=== PATIENT | female | born 1955 | race Caucasian/White ===

== ENCOUNTER → 2017-03-07 | Outpatient (CLI) | payer BC ==
--- NOTE | 2017-03-07 13:55 | REP ---
Clinical: COPD. Technique: PA and lateral. Comparison: 06/02/2014. Findings: Mediastinum and cardiac silhouette are within normal limits. Lung floyd demonstrate chronic interstitial changes along with hyperinflation and stable changes related to COPD. No acute consolidation, effusion, or pneumothorax. Skeletal structures demonstrate age-related osteopenia and degenerative change. Impression: Chronic stable changes consistent with history of COPD. No obvious acute cardiopulmonary process appreciated. Signed by Tarun Bruner MD 03/07/2017 01:46 P
== END ==
LOC: M RAD 13:37
PROVIDERS: ATTEND Internal Medicine Pulmonary Disease
DX: J44.9 Chronic obstructive pulmonary disease, unspecified (principal)

== ENCOUNTER → 2017-11-27 | Outpatient (CLI) | payer BC | LOC: M RAD 07:03 | DX: Z12.2 Encounter for screening for malignant neoplasm of respiratory organs (principal); F17.218 Nicotine dependence, cigarettes, with other nicotine-induced disorders; J44.9 Chronic obstructive pulmonary disease, unspecified; R91.8 Other nonspecific abnormal finding of lung field | CPT/HCPCS: G0297 ==

== ENCOUNTER → 2018-03-27 | Outpatient (CLI) | payer BC | LOC: M RAD 16:57 | DX: R91.8 Other nonspecific abnormal finding of lung field (principal) | CPT/HCPCS: 71250 ==

== ENCOUNTER → 2020-10-05 | Outpatient (CLI) | payer BC ==
--- NOTE | 2020-10-05 09:38 | REP ---
INDICATION: NICOTINE DEPENDENCE COMPARISON: 11/27/2017 TECHNIQUE: Axial noncontrast images from the thoracic inlet to the upper abdomen using low-dose lung screening technique (LDCT). FINDINGS: Early emphysematous changes are appreciated along with mild bronchiectasis and minimal primarily biapical scarring. Small pleural based posterior right lower lobe nodule and left lower lobe density remains stable compared through 2018. No acute consolidation, new nodule or mass. No effusion. No pneumothorax. IMPRESSION: Lung-RADS category 2. Stable chronic changes. Management recommendations include annual low-dose CT surveillance. <Electronically signed by Tarun Bruner > 10/05/20 [id number]
== END ==
LOC: M RAD 06:54
PROVIDERS: ATTEND Internal Medicine Pulmonary Disease
DX: Z12.2 Encounter for screening for malignant neoplasm of respiratory organs (principal); F17.200 Nicotine dependence, unspecified, uncomplicated; J47.9 Bronchiectasis, uncomplicated; R91.1 Solitary pulmonary nodule

== ENCOUNTER → 2021-11-29 | Outpatient (CLI) | payer BC | LOC: M RAD 06:12 | PROVIDERS: ATTEND Internal Medicine Pulmonary Disease | DX: R91.1 Solitary pulmonary nodule (principal); F17.218 Nicotine dependence, cigarettes, with other nicotine-induced disorders ==

== ENCOUNTER → 2022-12-22 | Outpatient (CLI) | payer BC, MEDICARE, OTHER | LOC: M RAD 13:06 | PROVIDERS: ATTEND Internal Medicine Pulmonary Disease | DX: F17.200 Nicotine dependence, unspecified, uncomplicated (principal) ==

== ENCOUNTER 2023-06-09 10:10 | Emergency (ER) | payer MEDICARE, OTHER ==
[~2023-06-09] VITALS: Ht 167.6 cm; Wt 38.9 kg
[2023-06-09 10:14] VITALS: BP 150/72; TEMP 98; O2SAT 94
[2023-06-09] MEDS ORDERED: DOXY-443 PO (12:57)
== END 2023-06-09 13:11 | disposition home or self-care (01) ==
LOC: M ED 10:10
DX: J11.00 Influenza due to unidentified influenza virus with unspecified type of pneumonia (principal); J45.909 Unspecified asthma, uncomplicated; F17.210 Nicotine dependence, cigarettes, uncomplicated; F10.10 Alcohol abuse, uncomplicated; I25.2 Old myocardial infarction; Z79.2 Long term (current) use of antibiotics

== ENCOUNTER 2023-06-15 05:00 | Emergency (ER) | payer OTHER ==
[~2023-06-15] VITALS: Ht 157.5 cm; Wt 40.5 kg
[~2023-06-15 05:00] MED LIST: DOXY-443 PO
[2023-06-15] MEDS ORDERED: ACET500T15 PO (05:15)
[2023-06-15] MEDS ORDERED: ATEN25TA (05:17)
[2023-06-15 06:55] LABS: INR 0.92; PROTHROMBIN TIME 12.1 SECONDS (12.5-14.5)
[2023-06-15 06:56] LABS: PARTIAL THROMBOPLASTIN TIME 26.9 SECONDS (24.8-34.2)
[2023-06-15 07:29] LABS: BASO % 0.2 % (0.0-1.0); EOS % 0.1 % (0.0-3.0); HEMATOCRIT 30.6 % (36.0-47.0); HEMOGLOBIN 11.8 g/dl (12.0-15.5); LYMPH # 1.9 10^3/uL (1.5-5.0); LYMPH % 9.5 % (24.0-44.0); MEAN CORPUSCULAR HEMOGLOBIN 34.7 pg (27.0-33.0); MONO # 0.9 10^3/uL (0.0-0.8); MONO % 4.6 % (2.0-8.0); NEUTROPHILS # 16.5 10^3/uL (1.5-8.5); NEUTROPHILS % 84.5 % (36.0-66.0); PLATELET COUNT, AUTOMATED 462 10^3/uL (150-450); WHITE BLOOD COUNT 19.5 10^3/uL (4.0-10.0)
[2023-06-15 07:36] LABS: MEAN CORPUSCULAR HGB CONC 38.6 g/dl (32.0-36.5)
[2023-06-15 07:54] LABS: FREE T4 1.34 NG/DL (0.89-1.76); THYROID STIMULATING HORMONE 1.146 uIU/ML (0.55-4.78)
[2023-06-15 08:09] LABS: ALBUMIN 2.9 G/DL (3.2-5.2); ALKALINE PHOSPHATASE 52 U/L (46-116); ALT/SGPT 26 U/L (7.0-40); AST/SGOT 16 U/L (<34); BILIRUBIN,DIRECT 0.2 MG/DL (<0.4); BILIRUBIN,TOTAL 0.5 MG/DL (0.3-1.2); BLOOD UREA NITROGEN 15 MG/DL (9-23); CALCIUM LEVEL 8.6 MG/DL (8.3-10.6); CARBON DIOXIDE LEVEL 26 MMOL/L (20-31); CHLORIDE LEVEL 102 MMOL/L (98-107); CK-MB VALUE MASS 1.6 NG/ML (<3.6); CPK CREATINE PHOSPHOKINASE 70 U/L (34-145); CREATININE FOR GFR 0.38 MG/DL (0.55-1.30); GLOMERULAR FILTRATION RATE > 60.0 (>45); GLUCOSE, FASTING 88 MG/DL (74-106); MB/CK RELATIVE INDEX 2.28 (< OR =4); POTASSIUM SERUM 3.4 MMOL/L (3.5-5.1); SODIUM LEVEL 133 MMOL/L (136-145); TOTAL PROTEIN 6.2 G/DL (5.7-8.2)
[2023-06-15] MEDS: POTASSIUM CHLORIDE 10MEQ SR TABLET PO ONE (08:35)
[2023-06-15] MEDS ORDERED: ISOVUE-370 76% 100ML VIAL As Ordered ONE (08:39)
[2023-06-15] MEDS ORDERED: DOXY100C82 PO (10:14)
[2023-06-15] MEDS ORDERED: CEFD300C PO (10:14)
[2023-06-15] MEDS ORDERED: PRED10TA2 PO (10:15)
[2023-06-15 10:20] VITALS: O2SAT 91
[2023-06-15 10:32] VITALS: BP 163/79; TEMP 97.9; O2SAT 97
== END 2023-06-15 10:30 | disposition home or self-care (01) ==
LOC: M ED 05:00
DX: J18.9 Pneumonia, unspecified organism (principal); J44.9 Chronic obstructive pulmonary disease, unspecified; R91.8 Other nonspecific abnormal finding of lung field; I25.2 Old myocardial infarction; E78.5 Hyperlipidemia, unspecified; F17.200 Nicotine dependence, unspecified, uncomplicated; J45.909 Unspecified asthma, uncomplicated
CPT/HCPCS: 36415; 71046; 71275; 80048; 80076; 82550; 82553; 83605; 83880; 84439; 84443; 84484; 85025; 85610; 85730; 87040; 87486; 87581; 87633; 87798; 93005; 93041; 94760; 99285; Q9967

== ENCOUNTER 2023-08-01 06:53 | Inpatient (IN) | payer OTHER ==
[~2023-08-01] VITALS: Ht 157.5 cm; Wt 37.2 kg
[~2023-08-01 06:53] MED LIST changes: +ACET500T15 PO; +ATEN25TA PO; +CEFD300C PO; +DOXY100C82 PO; +PRED10TA2 PO
[2023-08-01] MEDS ORDERED: TREL1AER INH (07:21)
[2023-08-01] MEDS ORDERED: PROA1AER2 INH (07:21)
[2023-08-01 11:06] LABS: HEMATOCRIT 36.2 % (36.0-47.0); HEMOGLOBIN 13.5 g/dl (12.0-15.5); MEAN CORPUSCULAR HEMOGLOBIN 36.9 pg (27.0-33.0); MEAN CORPUSCULAR VOLUME 98.9 fl (80.0-96.0); PLATELET COUNT, AUTOMATED 179 10^3/uL (150-450); RED BLOOD COUNT 3.66 10^6/uL (4.00-5.40); WHITE BLOOD COUNT 18.3 10^3/uL (4.0-10.0)
[2023-08-01] MEDS: methylPREDNISolone 125MG 2ML VIAL IV ONE (11:18)
[2023-08-01 11:20] LABS: INR 1.08; PROTHROMBIN TIME 13.7 SECONDS (12.5-14.5)
[2023-08-01 11:22] VITALS: O2SAT 95
[2023-08-01] MEDS: IPRATROPIUM 0.5MG/ALBUTEROL 2.5MG INH SOL UD 3ML (DUONEB) NEB ONE (11:22)
[2023-08-01 11:31] LABS: MEAN CORPUSCULAR HGB CONC 37.3 g/dl (32.0-36.5)
[2023-08-01 11:37] LABS: PROCALCITONIN 38.73 ng/ml
[2023-08-01 11:38] LABS: ALBUMIN 3.4 G/DL (3.2-5.2); ALKALINE PHOSPHATASE 51 U/L (46-116); ALT/SGPT 18 U/L (7.0-40); AST/SGOT 38 U/L (<34); BILIRUBIN,DIRECT 0.3 MG/DL (<0.4); BILIRUBIN,TOTAL 1.2 MG/DL (0.3-1.2); BLOOD UREA NITROGEN 12 MG/DL (9-23); CALCIUM LEVEL 8.8 MG/DL (8.3-10.6); CARBON DIOXIDE LEVEL 24 MMOL/L (20-31); CHLORIDE LEVEL 94 MMOL/L (98-107); CREATININE FOR GFR 0.37 MG/DL (0.55-1.30); GLOMERULAR FILTRATION RATE > 60.0 (>45); GLUCOSE, FASTING 93 MG/DL (74-106); SODIUM LEVEL 127 MMOL/L (136-145); TOTAL PROTEIN 6.3 G/DL (5.7-8.2)
[2023-08-01 11:57] LABS: EOSINOPHILS 1 % (0-3); LYMPHOCYTES 8 % (16-44); MONOCYTES 3 % (0-5); NEUTROPHILS 83 % (28-66); PLATELET ESTIMATE NORMAL (NORMAL)
[2023-08-01 11:58] LABS: ANISOCYTOSIS 1+
[2023-08-01] MEDS: IPRATROPIUM 0.5MG/ALBUTEROL 2.5MG INH SOL UD 3ML (DUONEB) NEB SCH (12:00)
[2023-08-01] MEDS: cefTRIAXone SOD 2 GM in D5W MINI-BAG PLUS 50 ML IV ONE (12:00)
[2023-08-01] MEDS ORDERED: ALBU8.5H INH (12:34)
[2023-08-01] MEDS ORDERED: HOME MED LIST COMPLETE! XX SCH (12:35)
[2023-08-01] MEDS: NS 1,120 ML in IV 1 EA IV ONE (12:43)
[2023-08-01 12:51] LABS: CK-MB VALUE MASS 1.1 NG/ML (<3.6); CPK CREATINE PHOSPHOKINASE 71 U/L (34-145); MB/CK RELATIVE INDEX 1.54 (< OR =4)
[2023-08-01] MEDS: ACETAMINOPHEN TAB 650MG DOSE (2X325MG) PO ONE (13:06)
[2023-08-01] MEDS ORDERED: KETOROLAC 30 MG/ML 1ML VIAL IV PRN (13:15)
[2023-08-01] MEDS: AZITHROMYCIN 250MG TABLET PO SCH (14:29)
[2023-08-01] MEDS: BUDESONIDE 0.5 MG/2 ML INHALATION SUSPENSION NEB SCH (15:51)
[2023-08-01] MEDS: FORMOTEROL FUMARATE 20 MCG/2 ML INHALATION SOLUTION (PERFOROMIST) INH SCH (15:51)
[2023-08-01 16:30] VITALS: BP 92/60; O2SAT 98
[2023-08-01] MEDS: methylPREDNISolone 40MG 1ML VIAL IV SCH (18:23)
[2023-08-01] MEDS: NS 1,000 ML IV ONE (18:23)
[2023-08-01 20:32] VITALS: BP 110/66; TEMP 97.3; O2SAT 98
[2023-08-01] MEDS: ENOXAPARIN 30MG/0.3ML SYRINGE (J1650 PER 10MG) SC SCH (20:59)
[2023-08-02 05:28] VITALS: BP 114/56; TEMP 98.6; O2SAT 95
[2023-08-02 07:02] LABS: BLOOD UREA NITROGEN 14 MG/DL (9-23); CALCIUM LEVEL 8.4 MG/DL (8.3-10.6); CARBON DIOXIDE LEVEL 21 MMOL/L (20-31); CHLORIDE LEVEL 107 MMOL/L (98-107); CREATININE FOR GFR 0.36 MG/DL (0.55-1.30); GLOMERULAR FILTRATION RATE > 60.0 (>45); GLUCOSE, FASTING 154 MG/DL (74-106); POTASSIUM SERUM 3.4 MMOL/L (3.5-5.1); SODIUM LEVEL 134 MMOL/L (136-145)
[2023-08-02 07:22] LABS: BASO % 0.1 % (0.0-1.0); HEMATOCRIT 28.7 % (36.0-47.0); LYMPH # 0.5 10^3/uL (1.5-5.0); MEAN CORPUSCULAR HEMOGLOBIN 36.2 pg (27.0-33.0); MEAN CORPUSCULAR VOLUME 95.3 fl (80.0-96.0); MONO # 0.3 10^3/uL (0.0-0.8); MONO % 1.8 % (2.0-8.0); NEUTROPHILS # 15.8 10^3/uL (1.5-8.5); NEUTROPHILS % 92.4 % (36.0-66.0); PLATELET COUNT, AUTOMATED 169 10^3/uL (150-450); RED BLOOD COUNT 3.01 10^6/uL (4.00-5.40); WHITE BLOOD COUNT 17.1 10^3/uL (4.0-10.0)
[2023-08-02 07:24] LABS: HEMOGLOBIN 10.9 g/dl (12.0-15.5)
[2023-08-02] MEDS: POTASSIUM CHLORIDE 10MEQ SR TABLET PO SCH (08:12)
[2023-08-02] MEDS: ACETAMINOPHEN TAB 650MG DOSE (2X325MG) PO PRN (08:14)
[2023-08-02] MEDS ORDERED: cefTRIAXone SOD 1 GM in D5W MINI-BAG PLUS 50 ML IV SCH (12:00)
[2023-08-02] MEDS: cefTRIAXone SOD 2 GM in D5W MINI-BAG PLUS 50 ML IV SCH (12:17)
[2023-08-02 14:00] VITALS: BP 115/58; TEMP 98.2; O2SAT 96
[2023-08-02 19:30] VITALS: BP 110/58; TEMP 98.4; O2SAT 96
[2023-08-03 05:00] VITALS: BP 120/60; TEMP 98.6; O2SAT 97
[2023-08-03 06:21] LABS: BLOOD UREA NITROGEN 21 MG/DL (9-23); CALCIUM LEVEL 8.7 MG/DL (8.3-10.6); CARBON DIOXIDE LEVEL 21 MMOL/L (20-31); CHLORIDE LEVEL 109 MMOL/L (98-107); CREATININE FOR GFR 0.31 MG/DL (0.55-1.30); GLOMERULAR FILTRATION RATE > 60.0 (>45); GLUCOSE, FASTING 175 MG/DL (74-106); POTASSIUM SERUM 3.7 MMOL/L (3.5-5.1); SODIUM LEVEL 137 MMOL/L (136-145)
[2023-08-03 08:04] LABS: BASO % 0.1 % (0.0-1.0); HEMATOCRIT 26.3 % (36.0-47.0); HEMOGLOBIN 9.9 g/dl (12.0-15.5); LYMPH # 0.6 10^3/uL (1.5-5.0); MEAN CORPUSCULAR HEMOGLOBIN 36.9 pg (27.0-33.0); MEAN CORPUSCULAR VOLUME 98.1 fl (80.0-96.0); MONO # 0.3 10^3/uL (0.0-0.8); NEUTROPHILS % 91.9 % (36.0-66.0); PLATELET COUNT, AUTOMATED 182 10^3/uL (150-450); RED BLOOD COUNT 2.68 10^6/uL (4.00-5.40); WHITE BLOOD COUNT 14.1 10^3/uL (4.0-10.0)
[2023-08-03 08:17] LABS: MEAN CORPUSCULAR HGB CONC 37.6 g/dl (32.0-36.5)
[2023-08-03] MEDS ORDERED: PROBCAP14 PO (10:21)
[2023-08-03] MEDS ORDERED: AMOX875T2 PO (10:21)
[2023-08-03] MEDS ORDERED: ALBU8.5H INH (10:21)
[2023-08-03 14:00] VITALS: BP 122/63; TEMP 98.6; O2SAT 98
[2023-08-03 21:00] VITALS: BP 149/69; TEMP 97.9; O2SAT 96
[2023-08-04 06:20] VITALS: BP 139/64; TEMP 98.4; O2SAT 97
[2023-08-04 06:39] LABS: BLOOD UREA NITROGEN 21 MG/DL (9-23); CALCIUM LEVEL 9.1 MG/DL (8.3-10.6); CARBON DIOXIDE LEVEL 23 MMOL/L (20-31); CHLORIDE LEVEL 108 MMOL/L (98-107); CREATININE FOR GFR 0.35 MG/DL (0.55-1.30); GLOMERULAR FILTRATION RATE > 60.0 (>45); GLUCOSE, FASTING 130 MG/DL (74-106); POTASSIUM SERUM 3.8 MMOL/L (3.5-5.1); SODIUM LEVEL 138 MMOL/L (136-145)
[2023-08-04 07:16] LABS: BASO % 0.1 % (0.0-1.0); HEMATOCRIT 26.4 % (36.0-47.0); HEMOGLOBIN 9.9 g/dl (12.0-15.5); LYMPH # 0.7 10^3/uL (1.5-5.0); LYMPH % 7.6 % (24.0-44.0); MONO # 0.3 10^3/uL (0.0-0.8); MONO % 2.8 % (2.0-8.0); NEUTROPHILS # 8.2 10^3/uL (1.5-8.5); NEUTROPHILS % 88.5 % (36.0-66.0); PLATELET COUNT, AUTOMATED 207 10^3/uL (150-450); RED BLOOD COUNT 2.75 10^6/uL (4.00-5.40); WHITE BLOOD COUNT 9.2 10^3/uL (4.0-10.0)
[2023-08-04 07:19] LABS: MEAN CORPUSCULAR HGB CONC 37.5 g/dl (32.0-36.5)
[2023-08-04] MEDS ORDERED: PRED10TA2 PO (09:10)
[2023-08-04] MEDS ORDERED: PANT40TA29 PO (09:12)
== END 2023-08-04 11:30 | disposition home or self-care (01) | DRG 871 ==
LOC: EDBD 06:53 → M ED 09:49 → M ED INP 14:00 → ENRESERV 16:09 → M MSPAV 16:33
PROVIDERS: ADMIT Internal Medicine Nephrology; ATTEND Internal Medicine Nephrology
DX: A41.9 Sepsis, unspecified organism (principal); J18.9 Pneumonia, unspecified organism; J44.0 Chronic obstructive pulmonary disease with (acute) lower respiratory infection; J44.1 Chronic obstructive pulmonary disease with (acute) exacerbation; E43 Unspecified severe protein-calorie malnutrition; Z68.1 Body mass index [BMI] 19.9 or less, adult; E87.1 Hypo-osmolality and hyponatremia; R91.1 Solitary pulmonary nodule; F17.200 Nicotine dependence, unspecified, uncomplicated; Z79.899 Other long term (current) drug therapy

== ENCOUNTER → 2023-08-17 | Outpatient (REF) | payer OTHER, MEDICARE ==
[~2023-08-17] MED LIST changes: +ALBU8.5H INH; +AMOX875T2 PO; +PANT40TA29 PO; +PROA1AER2 INH; +PROBCAP14 PO; +TREL1AER INH
[2023-08-17 18:35] LABS: HEMATOCRIT 35.3 % (36.0-47.0); MEAN CORPUSCULAR HEMOGLOBIN 38.8 pg (27.0-33.0); MEAN CORPUSCULAR VOLUME 105.4 fl (80.0-96.0); PLATELET COUNT, AUTOMATED 274 10^3/uL (150-450); RED BLOOD COUNT 3.35 10^6/uL (4.00-5.40); WHITE BLOOD COUNT 8.8 10^3/uL (4.0-10.0)
[2023-08-17 18:38] LABS: MEAN CORPUSCULAR HGB CONC 36.8 g/dl (32.0-36.5)
[2023-08-17 19:08] LABS: BLOOD UREA NITROGEN 17 MG/DL (9-23); CALCIUM LEVEL 9.7 MG/DL (8.3-10.6); CARBON DIOXIDE LEVEL 28 MMOL/L (20-31); CHLORIDE LEVEL 96 MMOL/L (98-107); CREATININE FOR GFR 0.55 MG/DL (0.55-1.30); GLOMERULAR FILTRATION RATE > 60.0 (>45); GLUCOSE, FASTING 65 MG/DL (74-106); POTASSIUM SERUM 4.6 MMOL/L (3.5-5.1); SODIUM LEVEL 131 MMOL/L (136-145); THYROID STIMULATING HORMONE 1.081 uIU/ML (0.55-4.78)
[2023-08-17 19:19] LABS: ATYPICAL LYMPH 6 % (0-5); BASOPHILS 3 % (0-1); EOSINOPHILS 2 % (0-3); LYMPHOCYTES 31 % (16-44); MONOCYTES 5 % (0-5); NEUTROPHILS 53 % (28-66)
[2023-08-17 19:20] LABS: PLATELET ESTIMATE NORMAL (NORMAL)
== END ==
LOC: M LAB REF 16:39
PROVIDERS: ATTEND Nurse Practitioner Family
DX: E87.1 Hypo-osmolality and hyponatremia (principal); J18.9 Pneumonia, unspecified organism

== ENCOUNTER → 2023-08-30 | Outpatient (CLI) | payer MEDICARE, OTHER ==
[~2023-08-30] MED LIST changes: +DOXY-323 PO; -DOXY-443 PO
== END ==
LOC: M PLAIMG 10:33
PROVIDERS: ATTEND Internal Medicine Pulmonary Disease
DX: R91.8 Other nonspecific abnormal finding of lung field (principal)

== ENCOUNTER → 2023-12-19 | Outpatient (REF) | payer OTHER ==
[2023-12-19 13:45] LABS: HEMATOCRIT 37.2 % (36.0-47.0); HEMOGLOBIN 13.7 g/dl (12.0-15.5); MEAN CORPUSCULAR HEMOGLOBIN 33.9 pg (27.0-33.0); MEAN CORPUSCULAR VOLUME 92.1 fl (80.0-96.0); PLATELET COUNT, AUTOMATED 197 10^3/uL (150-450); RED BLOOD COUNT 4.04 10^6/uL (4.00-5.40); WHITE BLOOD COUNT 7.9 10^3/uL (4.0-10.0)
[2023-12-19 13:46] LABS: MEAN CORPUSCULAR HGB CONC 36.8 g/dl (32.0-36.5)
[2023-12-19 13:47] LABS: ATYPICAL LYMPH 3 % (0-5); EOSINOPHILS 8 % (0-3); LYMPHOCYTES 42 % (16-44); MONOCYTES 17 % (0-5); NEUTROPHILS 30 % (28-66)
[2023-12-19 13:48] LABS: PLATELET ESTIMATE NORMAL (NORMAL)
== END ==
LOC: M LAB REF 11:32
PROVIDERS: ATTEND Nurse Practitioner Family
DX: D72.820 Lymphocytosis (symptomatic) (principal)

== ENCOUNTER 2024-06-09 08:14 | Inpatient (IN) | payer MEDICARE ==
[~2024-06-09] VITALS: Ht 157.5 cm; Wt 42.6 kg
[~2024-06-09 08:14] MED LIST changes: +ASPI81TA26 PO; -DOXY-323 PO; +DOXY-441 PO; +PRED10PA PO; +THERTAB52 PO; +VITA-243 PO; +VITA100093 PO
[2024-06-09 08:39] LABS: VENOUS BASE EXCESS -1.8 (-2.0-2.0); VENOUS HCO3 23.6 MMOL/L (23.0-27.0); VENOUS O2 SATURATION 55.1 % (60.0-80.0); VENOUS PARTIAL PRESSURE CO2 42.4 mmHg (38.0-50.0); VENOUS PARTIAL PRESSURE O2 27.9 mmHg (30.0-50.0); VENOUS PH 7.363 UNITS (7.330-7.430); VENOUS TOTAL CO2 24.9 MMOL/L (24.0-28.0)
[2024-06-09 08:46] LABS: BASO # 0.1 10^3/uL (0.0-0.2); BASO % 0.7 % (0.0-1.0); EOS # 0.3 10^3/uL (0.0-0.5); EOS % 3.7 % (0.0-3.0); HEMOGLOBIN 12.7 g/dl (12.0-15.5); LYMPH # 0.6 10^3/uL (1.5-5.0); LYMPH % 8.2 % (24.0-44.0); MEAN CORPUSCULAR HEMOGLOBIN 34.7 pg (27.0-33.0); MEAN CORPUSCULAR HGB CONC 36.3 g/dl (32.0-36.5); MEAN CORPUSCULAR VOLUME 95.6 fl (80.0-96.0); MONO # 0.6 10^3/uL (0.0-0.8); MONO % 8.2 % (2.0-8.0); NEUTROPHILS # 5.7 10^3/uL (1.5-8.5); NEUTROPHILS % 78.8 % (36.0-66.0); PLATELET COUNT, AUTOMATED 190 10^3/uL (150-450); RED BLOOD COUNT 3.66 10^6/uL (4.00-5.40); WHITE BLOOD COUNT 7.3 10^3/uL (4.0-10.0)
[2024-06-09] MEDS: NS 500 ML IV ONE (08:50)
[2024-06-09] MEDS: ALBUTEROL SULFATE 2.5MG/0.5ML INH NEB SOLN INH ONE (09:03)
[2024-06-09] MEDS: IPRATROPIUM 0.5MG/ALBUTEROL 2.5MG INH SOL UD 3ML (DUONEB) NEB ONE (09:03)
[2024-06-09 09:31] LABS: ALBUMIN 3.5 G/DL (3.2-5.2); ALKALINE PHOSPHATASE 60 U/L (35-104); ALT/SGPT 32 U/L (7.0-40); AST/SGOT 48 U/L (<34); BILIRUBIN,DIRECT 0.1 MG/DL (<0.4); BILIRUBIN,TOTAL 0.7 MG/DL (0.3-1.2); BLOOD UREA NITROGEN 14 MG/DL (9-23); CALCIUM LEVEL 8.6 MG/DL (8.3-10.6); CARBON DIOXIDE LEVEL 25 MMOL/L (20-31); CHLORIDE LEVEL 101 MMOL/L (98-107); CK-MB VALUE MASS < 1.0 NG/ML (<3.6); CPK CREATINE PHOSPHOKINASE 91 U/L (34-145); CREATININE FOR GFR 0.48 MG/DL (0.55-1.30); GLOMERULAR FILTRATION RATE > 60.0 (>45); GLUCOSE, FASTING 100 MG/DL (74-106); MB/CK RELATIVE INDEX 1.09 (< OR =4); POTASSIUM SERUM 5.8 MMOL/L (3.5-5.1); SODIUM LEVEL 131 MMOL/L (136-145); THYROID STIMULATING HORMONE 0.342 uIU/ML (0.55-4.78); THYROXINE (T4) 4.6 UG/DL (4.5-10.9); TOTAL PROTEIN 6.8 G/DL (5.7-8.2)
[2024-06-09 09:37] LABS: VENOUS O2 SATURATION 74.8 % (60.0-80.0); VENOUS PARTIAL PRESSURE CO2 36.2 mmHg (38.0-50.0); VENOUS PARTIAL PRESSURE O2 37.2 mmHg (30.0-50.0); VENOUS PH 7.421 UNITS (7.330-7.430); VENOUS STANDARD HCO3 23.1 MMOL/L; VENOUS TOTAL CO2 24.1 MMOL/L (24.0-28.0)
[2024-06-09] MEDS ORDERED: ISOVUE-370 76% 100ML VIAL As Ordered ONE (09:49)
[2024-06-09 09:53] LABS: PROCALCITONIN 0.04 ng/ml
[2024-06-09 10:05] LABS: CK-MB VALUE MASS < 1.0 NG/ML (<3.6)
[2024-06-09 10:15] LABS: CPK CREATINE PHOSPHOKINASE 64 U/L (34-145); MB/CK RELATIVE INDEX 1.56 (< OR =4)
[2024-06-09] MEDS: ACETAMINOPHEN 325 MG TAB PO ONE (10:46)
[2024-06-09] MEDS: DOXYCYCLINE HYCLATE 100 MG in DEXTROSE 5% (D5W) MINI-BAG PLU 100 ML IV ONE (11:15)
[2024-06-09] MEDS: cefTRIAXone SOD 2 GM in DEXTROSE 5% (D5W) ADV/MINI-BAG 50 ML IV ONE (12:02)
[2024-06-09] MEDS ORDERED: MOM 30ML SUSPENSION UDC PO PRN (12:10)
[2024-06-09] MEDS ORDERED: MAALOX 30 ML SUSP *UDC PO PRN (12:10)
[2024-06-09 13:48] LABS: BLOOD UREA NITROGEN 10 MG/DL (9-23); CALCIUM LEVEL 8.9 MG/DL (8.3-10.6); CARBON DIOXIDE LEVEL 24 MMOL/L (20-31); CHLORIDE LEVEL 102 MMOL/L (98-107); CREATININE FOR GFR 0.43 MG/DL (0.55-1.30); GLOMERULAR FILTRATION RATE > 60.0 (>45); GLUCOSE, FASTING 145 MG/DL (74-106); POTASSIUM SERUM 3.9 MMOL/L (3.5-5.1); SODIUM LEVEL 134 MMOL/L (136-145)
[2024-06-09] MEDS: predniSONE 20 MG TAB PO SCH (13:49)
[2024-06-09] MEDS ORDERED: PANT40TA29 PO (13:51)
[2024-06-09] MEDS ORDERED: VENTAER INH (13:51)
[2024-06-09] MEDS ORDERED: HOME MED LIST COMPLETE! XX SCH (13:55)
[2024-06-09] MEDS: IPRATROPIUM 0.5MG/ALBUTEROL 2.5MG INH SOL UD 3ML (DUONEB) INH SCH (14:52)
[2024-06-09] MEDS: ANALGESIC BALM CRM 3OZ TOP SCH (16:00)
[2024-06-09] MEDS: BENZONATATE 100MG CAPSULE PO SCH (16:48)
[2024-06-09] MEDS: DOXYCYCLINE HYCLATE 100MG TABLET PO SCH (22:12)
[2024-06-09] MEDS: ACETAMINOPHEN 325 MG TAB PO PRN (22:13)
[2024-06-09] MEDS: guaiFENesin ER TABLET 600 MG TAB PO SCH (22:13)
[2024-06-09] MEDS: ENOXAPARIN 40MG/0.4ML SYRINGE (J1650 PER 10MG) SC SCH (22:13)
[2024-06-10 06:58] LABS: BLOOD UREA NITROGEN 12 MG/DL (9-23); CALCIUM LEVEL 9.3 MG/DL (8.3-10.6); CARBON DIOXIDE LEVEL 26 MMOL/L (20-31); CHLORIDE LEVEL 99 MMOL/L (98-107); CREATININE FOR GFR 0.48 MG/DL (0.55-1.30); GLOMERULAR FILTRATION RATE > 60.0 (>45); GLUCOSE, FASTING 98 MG/DL (74-106); MAGNESIUM LEVEL 1.6 MG/DL (1.8-2.4); POTASSIUM SERUM 3.8 MMOL/L (3.5-5.1); SODIUM LEVEL 132 MMOL/L (136-145)
[2024-06-10] MEDS ORDERED: MAG SULF 1GM/100ML (MAG RUN) 1 GM in IV 1 EA IV SCH (07:10)
[2024-06-10] MEDS: MAG SULF 1GM/100ML (MAG RUN) 1 GM in IV 1 EA IV SCH (08:38)
[2024-06-10] MEDS: cefTRIAXone SOD 1 GM in DEXTROSE 5% (D5W) ADV/MINI-BAG 50 ML IV SCH (13:56)
[2024-06-10 16:40] VITALS: BP 154/66; TEMP 97.3; O2SAT 96
[2024-06-10 19:50] VITALS: BP 127/61; TEMP 98.2; O2SAT 96
[2024-06-11] VITALS (7 sets, daily range): BP systolic 111–174; BP diastolic 58–109; TEMP 97.4–99.2; O2SAT 93–100
[2024-06-11 06:54] LABS: BLOOD UREA NITROGEN 14 MG/DL (9-23); CALCIUM LEVEL 9.1 MG/DL (8.3-10.6); CARBON DIOXIDE LEVEL 26 MMOL/L (20-31); CHLORIDE LEVEL 102 MMOL/L (98-107); CREATININE FOR GFR 0.45 MG/DL (0.55-1.30); GLOMERULAR FILTRATION RATE > 60.0 (>45); GLUCOSE, FASTING 86 MG/DL (74-106); MAGNESIUM LEVEL 1.9 MG/DL (1.8-2.4); SODIUM LEVEL 134 MMOL/L (136-145)
[2024-06-11 08:04] LABS: BASO % 0.8 % (0.0-1.0); EOS % 0.2 % (0.0-3.0); HEMATOCRIT 36.9 % (36.0-47.0); HEMOGLOBIN 13.5 g/dl (12.0-15.5); LYMPH # 1.1 10^3/uL (1.5-5.0); LYMPH % 22.5 % (24.0-44.0); MEAN CORPUSCULAR HEMOGLOBIN 34.5 pg (27.0-33.0); MEAN CORPUSCULAR HGB CONC 36.6 g/dl (32.0-36.5); MEAN CORPUSCULAR VOLUME 94.4 fl (80.0-96.0); MONO # 0.5 10^3/uL (0.0-0.8); MONO % 11.2 % (2.0-8.0); NEUTROPHILS # 3.1 10^3/uL (1.5-8.5); NEUTROPHILS % 65.1 % (36.0-66.0); PLATELET COUNT, AUTOMATED 176 10^3/uL (150-450); RED BLOOD COUNT 3.91 10^6/uL (4.00-5.40); WHITE BLOOD COUNT 4.8 10^3/uL (4.0-10.0)
[2024-06-11] MEDS ORDERED: LEVALBUTEROL 1.25MG 0.5ML CONCENTRATE NEB NEB PRN (09:40)
[2024-06-11] MEDS: atenoloL 25 MG TAB PO SCH (09:58)
[2024-06-11 10:22] LABS: BLOOD UREA NITROGEN 15 MG/DL (9-23); CALCIUM LEVEL 9.1 MG/DL (8.3-10.6); CARBON DIOXIDE LEVEL 24 MMOL/L (20-31); CHLORIDE LEVEL 101 MMOL/L (98-107); CK-MB VALUE MASS < 1.0 NG/ML (<3.6); CREATININE FOR GFR 0.47 MG/DL (0.55-1.30); GLOMERULAR FILTRATION RATE > 60.0 (>45); GLUCOSE, FASTING 100 MG/DL (74-106); MAGNESIUM LEVEL 1.8 MG/DL (1.8-2.4); PHOSPHORUS LEVEL 2.4 MG/DL (2.4-5.1); POTASSIUM SERUM 3.8 MMOL/L (3.5-5.1); SODIUM LEVEL 133 MMOL/L (136-145)
[2024-06-11 10:25] LABS: CPK CREATINE PHOSPHOKINASE 88 U/L (34-145); MB/CK RELATIVE INDEX 1.13 (< OR =4)
[2024-06-11] MEDS: METOPROLOL 5 MG/5 ML VIAL IV STA (10:27)
[2024-06-11] MEDS: CEFDINIR 300 MG CAP (OMNICEF) PO SCH (10:47)
[2024-06-11] MEDS: LEVALBUTEROL 1.25MG 0.5ML CONCENTRATE NEB NEB SCH (11:12)
[2024-06-11] MEDS: ASPIRIN 81MG ENTERIC TABLET PO SCH (11:45)
[2024-06-11] MEDS: PANTOPRAZOLE 40MG TAB (PROTONIX) PO SCH (11:46)
[2024-06-11] MEDS: ASCORBIC ACID 500 MG TAB PO SCH (11:46)
[2024-06-11] MEDS: VITAMIN D 1,000 INTERNATIONAL UNITS TABLET PO SCH (11:46)
[2024-06-11] MEDS: ADVAIR HFA 115/21MCG INHALER INH SCH (13:02)
[2024-06-11] MEDS: TIOTROPIUM INHALER/CAPSULE (SPIRIVA) INH SCH (13:02)
[2024-06-11] MEDS: FLUTICASONE PROP 0.05% NASAL SPRAY 16 GM (FLONASE) NARES SCH (14:53)
[2024-06-11] MEDS: LACTOBACILLUS ACIDOPHILUS CAP (BACID) PO SCH (18:26)
[2024-06-12 03:00] VITALS: BP 117/81; TEMP 98.4; O2SAT 94
[2024-06-12 05:04] LABS: BASO % 0.7 % (0.0-1.0); EOS % 0.3 % (0.0-3.0); LYMPH # 1.4 10^3/uL (1.5-5.0); LYMPH % 44.9 % (24.0-44.0); MEAN CORPUSCULAR HEMOGLOBIN 33.9 pg (27.0-33.0); MEAN CORPUSCULAR HGB CONC 36.1 g/dl (32.0-36.5); MEAN CORPUSCULAR VOLUME 93.8 fl (80.0-96.0); MONO # 0.6 10^3/uL (0.0-0.8); MONO % 18.2 % (2.0-8.0); NEUTROPHILS # 1.1 10^3/uL (1.5-8.5); NEUTROPHILS % 35.9 % (36.0-66.0); PLATELET COUNT, AUTOMATED 182 10^3/uL (150-450); RED BLOOD COUNT 3.84 10^6/uL (4.00-5.40)
[2024-06-12 05:28] LABS: BLOOD UREA NITROGEN 15 MG/DL (9-23); CALCIUM LEVEL 9.1 MG/DL (8.3-10.6); CARBON DIOXIDE LEVEL 24 MMOL/L (20-31); CHLORIDE LEVEL 103 MMOL/L (98-107); CREATININE FOR GFR 0.43 MG/DL (0.55-1.30); GLOMERULAR FILTRATION RATE > 60.0 (>45); GLUCOSE, FASTING 85 MG/DL (74-106); MAGNESIUM LEVEL 1.7 MG/DL (1.8-2.4); POTASSIUM SERUM 4.1 MMOL/L (3.5-5.1); SODIUM LEVEL 135 MMOL/L (136-145)
[2024-06-12 07:55] VITALS: BP 124/61; TEMP 97.5; O2SAT 89
[2024-06-12 08:02] VITALS: BP 124/61
[2024-06-12] MEDS: MULTIVITAMINS/MINERALS THERAP 1 TAB PO SCH (08:02)
[2024-06-12] MEDS: predniSONE 10MG TAB PO SCH (08:02)
[2024-06-12] MEDS: MAGNESIUM OXIDE 400MG TAB (MAG-OX) PO ONE (08:03)
[2024-06-12] MEDS: NICOTINE 21MG/24HR 1 EA TRANSDERMAL TD SCH (09:10)
[2024-06-12] MEDS ORDERED: DOXY100T PO (12:03)
[2024-06-12] MEDS ORDERED: PRED10TA2 PO (12:03)
[2024-06-12] MEDS ORDERED: CEFD300CAP PO (12:03)
[2024-06-12] MEDS ORDERED: MUCI600T31 PO (12:03)
== END 2024-06-12 15:45 | disposition home health service (06) | DRG 190 ==
LOC: M ED 08:14 → EDBD 08:14 → M ED INP 12:10 → M MS4PR 06-10 16:40 → M ICU 06-11 09:54
PROVIDERS: ADMIT Student in an Organized Health Care Education/Training Program; ATTEND Internal Medicine
DX: J44.1 Chronic obstructive pulmonary disease with (acute) exacerbation (principal); J18.9 Pneumonia, unspecified organism; E46 Unspecified protein-calorie malnutrition; E87.1 Hypo-osmolality and hyponatremia; Z68.1 Body mass index [BMI] 19.9 or less, adult; I47.10 Supraventricular tachycardia, unspecified; F17.210 Nicotine dependence, cigarettes, uncomplicated; I10 Essential (primary) hypertension; K21.9 Gastro-esophageal reflux disease without esophagitis; E83.42 Hypomagnesemia; Z96.642 Presence of left artificial hip joint; J44.0 Chronic obstructive pulmonary disease with (acute) lower respiratory infection; Z79.82 Long term (current) use of aspirin; Z79.899 Other long term (current) drug therapy; Z79.52 Long term (current) use of systemic steroids

== ENCOUNTER → 2024-07-16 | Outpatient (CLI) | payer MEDICARE ==
[~2024-07-16] MED LIST changes: +CEFD300CAP PO; +DOXY-442 PO; -DOXY100C82 PO; +DOXY100T PO; +MUCI600T31 PO; +VENTAER INH
== END ==
LOC: M PLARAD 07:11
PROVIDERS: ATTEND Internal Medicine Pulmonary Disease
DX: R91.1 Solitary pulmonary nodule (principal)
CPT/HCPCS: 78815; A9552

== ENCOUNTER → 2024-07-25 | Outpatient (CLI) | payer MEDICARE | LOC: M CARPUL 12:48 | PROVIDERS: ATTEND Internal Medicine Pulmonary Disease | DX: J44.9 Chronic obstructive pulmonary disease, unspecified (principal) ==

== ENCOUNTER → 2024-11-06 | Outpatient (CLI) | payer MEDICARE | LOC: M PLAIMG 06:50 | PROVIDERS: ATTEND Internal Medicine Pulmonary Disease | DX: R91.8 Other nonspecific abnormal finding of lung field (principal) ==

== ENCOUNTER 2025-04-17 08:50 | Observation (INO) | payer MEDICARE ==
[~2025-04-17] VITALS: Ht 157.5 cm; Wt 39.8 kg
[2025-04-17] MEDS: NS 500 ML IV ONE (09:10)
[2025-04-17] MEDS ORDERED: ISOVUE-370 76% 100 ML VIAL As Ordered ONE (09:10)
[2025-04-17 09:25] LABS: BASO # 0.1 10^3/uL (0.0-0.2); BASO % 0.5 % (0.0-1.0); EOS # 0.1 10^3/uL (0.0-0.5); EOS % 0.8 % (0.0-3.0); LYMPH # 3.1 10^3/uL (1.5-5.0); LYMPH % 23.7 % (24.0-44.0); MONO # 0.6 10^3/uL (0.0-0.8); MONO % 4.8 % (2.0-8.0); NEUTROPHILS # 9.1 10^3/uL (1.5-8.5); NEUTROPHILS % 69.4 % (36.0-66.0); PLATELET COUNT, AUTOMATED 320 10^3/uL (150-450)
[2025-04-17 09:48] LABS: CPK CREATINE PHOSPHOKINASE 53 U/L (34-145)
[2025-04-17 10:01] LABS: INR 0.93
[2025-04-17 10:07] LABS: ALT/SGPT 18 U/L (7.0-40); AST/SGOT 19 U/L (<34); CALCIUM LEVEL 8.4 MG/DL (8.3-10.6); CARBON DIOXIDE LEVEL 26 MMOL/L (20-31); CHLORIDE LEVEL 103 MMOL/L (98-107); CK-MB VALUE MASS 2.4 NG/ML (<3.6); CREATININE FOR GFR 0.59 MG/DL (0.55-1.30); FREE T4 1.25 NG/DL (0.89-1.76); GLOMERULAR FILTRATION RATE > 90.0 (>45); MB/CK RELATIVE INDEX 4.52 (< OR =4); POTASSIUM SERUM 3.7 MMOL/L (3.5-5.1); SODIUM LEVEL 135 MMOL/L (136-145)
[2025-04-17] MEDS: LIDOCAINE 2% 5 ML JELLY UROJET TOP ONE (10:25)
[2025-04-17 10:43] LABS: CK-MB VALUE MASS 2.5 NG/ML (<3.6)
[2025-04-17 10:46] LABS: KETONE, URINE AUTO RFX NEGATIVE (NEGATIVE); MUCUS, URINE RFX SMALL (NEGATIVE); NITRITE, URINE AUTO RFX NEGATIVE (NEGATIVE); RBC, URINE AUTO RFX 0 /HPF (0-3); SQUAM EPITHELIAL CELL UR AURFX 0 /HPF (0-6)
[2025-04-17 10:50] LABS: LEUKOCYTE ESTERASE UR AUTO RFX TRACE (NEGATIVE); WBC, URINE AUTO RFX 17 /HPF (0-3)
[2025-04-17 11:02] LABS: CPK CREATINE PHOSPHOKINASE 50.0 U/L (34-145); MB/CK RELATIVE INDEX 5.0 (< OR =4)
[2025-04-17 11:08] LABS: C REACTIVE PROTEIN QUANTITATIV < 0.50 MG/DL (<1.0)
[2025-04-17 13:22] LABS: MAGNESIUM LEVEL 1.7 MG/DL (1.8-2.4)
[2025-04-17] MEDS ORDERED: FLUT1BLS8 INH (13:52)
[2025-04-17] MEDS ORDERED: PRED10TA2 PO (13:53)
[2025-04-17] MEDS ORDERED: HOME MED LIST COMPLETE! XX SCH (13:55)
[2025-04-17 15:01] LABS: CK-MB VALUE MASS 2.8 NG/ML (<3.6)
[2025-04-17 15:06] LABS: CPK CREATINE PHOSPHOKINASE 51.0 U/L (34-145); MB/CK RELATIVE INDEX 5.49 (< OR =4)
[2025-04-17] MEDS: NS (Normal Saline) 0.9% 1,000 ML IV ONE (15:42)
[2025-04-17 16:51] LABS: CHOLESTEROL LEVEL 180 MG/DL (<200); CHOLESTEROL RISK RATIO 2.57 (<5); LDL CHOLESTEROL 76.3 MG/DL (<100); NON-HDL-C 110.1 MG/DL; TRIGLYCERIDES LEVEL 169 MG/DL (<150)
[2025-04-17 16:52] LABS: AMPHETAMINES LEVEL URINE NEGATIVE (NEGATIVE); BARBITURATES URINE NEGATIVE (NEGATIVE); BENZODIAZEPINES URINE NEGATIVE (NEGATIVE); CANNABINOIDS URINE NEGATIVE (NEGATIVE); COCAINE METABOLITE URINE NEGATIVE (NEGATIVE); METHADONE URINE NEGATIVE (NEGATIVE); PHENCYCLIDINE URINE NEGATIVE (NEGATIVE)
[2025-04-17 17:03] LABS: OPIATES URINE POSITIVE (NEGATIVE)
[2025-04-17 17:24] LABS: ESTIMATED AVERAGE GLUCOSE 82.0 MG/DL (60-110)
[2025-04-17 17:42] VITALS: BP 160/72; TEMP 98; O2SAT 99
[2025-04-17 20:00] VITALS: BP 144/79; TEMP 97.3; O2SAT 96; O2SAT 98
[2025-04-17] MEDS: CLOPIDOGREL 75 MG TAB PO SCH (20:00)
[2025-04-17] MEDS: ATORVASTATIN 20 MG TAB PO SCH (20:00)
[2025-04-17] MEDS: FOSFOMYCIN TROMETHAMINE 3 GM POWDER PACKET PO ONE (20:17)
[2025-04-17 23:37] VITALS: BP 118/56
[2025-04-17 23:41] VITALS: BP 141/63
[2025-04-17 23:45] VITALS: BP 139/79
[2025-04-18] MEDS: traZODone 50 MG TAB PO PRN (01:37)
[2025-04-18 06:00] VITALS: BP 144/64; TEMP 98; O2SAT 90
[2025-04-18 08:40] LABS: PLATELET COUNT, AUTOMATED 277 10^3/uL (150-450)
[2025-04-18 08:58] LABS: CALCIUM LEVEL 8.1 MG/DL (8.3-10.6); CARBON DIOXIDE LEVEL 26 MMOL/L (20-31); CHLORIDE LEVEL 105 MMOL/L (98-107); CREATININE FOR GFR 0.57 MG/DL (0.55-1.30); GLOMERULAR FILTRATION RATE > 90.0 (>45); MAGNESIUM LEVEL 1.5 MG/DL (1.8-2.4); POTASSIUM SERUM 3.6 MMOL/L (3.5-5.1); SODIUM LEVEL 137 MMOL/L (136-145)
[2025-04-18] MEDS: ASPIRIN 81 MG CHEWABLE TABLET PO SCH (08:59)
[2025-04-18] MEDS: ENOXAPARIN 30 MG/0.3 ML SYRINGE (J1650 PER 10MG) SC SCH (09:01)
[2025-04-18] MEDS: LIDOCAINE 5% PATCH TD SCH (09:41)
[2025-04-18] MEDS: MAG SULF 1GM/100ML (MAG RUN) 1 GM in IV 1 EA IV SCH (09:41)
[2025-04-18 12:06] VITALS: BP 116/55; TEMP 98.8; O2SAT 95
[2025-04-18 16:38] VITALS: BP 167/73; TEMP 98.7; O2SAT 96
[2025-04-18] MEDS: SYMBICORT 160/4.5MCG INHALER 6GM INH SCH (20:00)
[2025-04-18 20:13] VITALS: BP 149/66; TEMP 97.5; O2SAT 94
[2025-04-18] MEDS ORDERED: guaiFENesin ER TABLET 600 MG TAB PO SCH (21:00)
[2025-04-18] MEDS: PERCOCET 5MG/325MG TAB PO PRN (21:16)
[2025-04-18] MEDS ORDERED: IPRATROPIUM 0.5 MG/ALBUTEROL 2.5 MG INH SOL UD 3 ML NEB PRN (22:15)
[2025-04-18] MEDS: METOPROLOL SUCC. 50 MG *XL* TAB PO SCH (22:30)
[2025-04-19 03:24] VITALS: BP 134/60; TEMP 97.9; O2SAT 94
[2025-04-19] MEDS: TIOTROPIUM BROM 2.5MCG/ACTUATION 4GM INH INH SCH (07:03)
[2025-04-19 08:55] VITALS: BP 121/57
[2025-04-19] MEDS ORDERED: FLUT1BLS8 INH (09:08)
[2025-04-19] MEDS ORDERED: VENTAER INH (09:08)
[2025-04-19] MEDS ORDERED: ATOR80TA59 PO (09:09)
[2025-04-19] MEDS ORDERED: CLOP75TA99 PO (09:09)
== END 2025-04-19 10:54 | disposition home or self-care (01) ==
LOC: EDBD 08:50 → M ED 10:28 → M ED INP 10:29 → M MS4PR 17:42 → M MSPAV 04-18 16:35
PROVIDERS: ADMIT Student in an Organized Health Care Education/Training Program; ATTEND Internal Medicine
DX: I47.10 Supraventricular tachycardia, unspecified (principal); R00.2 Palpitations; R42 Dizziness and giddiness; R90.89 Other abnormal findings on diagnostic imaging of central nervous system; R79.89 Other specified abnormal findings of blood chemistry; R10.32 Left lower quadrant pain; R05.9 Cough, unspecified; I10 Essential (primary) hypertension; J44.9 Chronic obstructive pulmonary disease, unspecified; K21.9 Gastro-esophageal reflux disease without esophagitis; Z86.73 Personal history of transient ischemic attack (TIA), and cerebral infarction without residual deficits; J45.909 Unspecified asthma, uncomplicated; F17.200 Nicotine dependence, unspecified, uncomplicated; Z96.642 Presence of left artificial hip joint; Z79.899 Other long term (current) drug therapy; Z79.52 Long term (current) use of systemic steroids; Z79.51 Long term (current) use of inhaled steroids
CPT/HCPCS: 36415; 70450; 70496; 70498; 70551; 71045; 71260; 74177; 80047; 80048; 80061; 80076; 80307; 81001; 82550; 82553; 83036; 83605; 83735; 84145; 84439; 84443; 84484; 85025; 85027; 85610; 85652; 85730; 86140; 86850; 86900; 86901; 87040; 87088; 87186; 87486; 87581; 87633; 87798; 93005; 93041; 93306; 94640; 94760; 96361; 96365; 96372; 97161; 99285; G0378; J1650; J3475; Q9967

== ENCOUNTER → 2025-04-19 | Outpatient (CLI) | payer MEDICARE ==
[~2025-04-19] MED LIST changes: +ATOR80TA59 PO; +CLOP75TA99 PO; +FLUT1BLS8 INH; +PERC5TAB12 PO
== END ==
LOC: M EKG 10:58
PROVIDERS: ATTEND Internal Medicine
DX: I47.10 Supraventricular tachycardia, unspecified (principal); I63.9 Cerebral infarction, unspecified